=== PATIENT | male | born 1970 | race American Indian/Alaskan Native ===

== ENCOUNTER 2016-05-23 14:44 | Emergency (ER) | payer SELFPAY ==
[2016-05-23 16:00] LABS: Basophils % (Auto) 0.7 % (0.0-1.8); Eosinophils % (Auto) 3.5 % (0.0-4.3); Hematocrit 41.8 % (35.5-45.6); Hemoglobin 13.9 gm/dl (11.8-15.2); Mean Corpuscular HGB Conc 33 % (32-34); Mean Corpuscular Hemoglobin 27 pg (28-32); Mean Corpuscular Volume 81 fl (84-94); Platelet Count 367 K/mm3 (140-440); Red Blood Count 5.19 M/mm3 (3.65-5.03); Red Cell Distribution Width 15.4 % (13.2-15.2); White Blood Count 13.9 K/mm3 (4.5-11.0)
[2016-05-23 16:23] LABS: Anion Gap 20 mmol/L; BUN/Creatinine Ratio 9.09; Blood Urea Nitrogen 10 mg/dL (9-20); Calcium 9.4 mg/dL (8.4-10.2); Carbon Dioxide 26 mmol/L (22-30); Glucose 133 mg/dL (75-100); Potassium 3.8 mmol/L (3.6-5.0); Sodium 142 mmol/L (137-145)
[2016-05-24] MEDS ORDERED: NORCO 7.5/325 PO ONE (01:03)
--- NOTE | 2016-05-24 01:28 | Emergency Department Report ---
HPI - General Chief Complaint: Chest Pain Time Seen by Provider: 05/24/16 00:55 - HPI HPI: The patient is a 45-year-old male who presents for evaluation of chest pain. The patient reports 2 days of on and off midsternal chest pain, throbbing in quality, 10/10 in severity, exacerbated with movement of the upper chest wall or arms at the shoulder joint bilaterally. The patient denies trauma to the chest wall, fever, dyspnea, dyspnea, syncope, hemoptysis, unilateral leg swelling, recent immobilization, history of DVT or PE, recent cancer, history of congenital heart disease, or history of illicit drug use. ED Past Medical Hx - Past Medical History Hx Diabetes: Yes Additional medical history: Eye problem - Surgical History Additional Surgical History: Thyroid - Social History Smoking Status: Former Smoker Substance Use Type: None - Medications Home Medications: Home Medications Medication Instructions Recorded Confirmed Last Taken Type Cyclobenzaprine HCl [Flexeril 5 MG 5 mg PO Q8HR PRN #12 tab 05/24/16 Unknown Rx TAB] Levothyroxine [Synthroid] 100 mcg PO QAM 05/24/16 05/24/16 Unknown History Levothyroxine [Synthroid] 100 mcg PO QAM #30 tablet 05/24/16 Unknown Rx ED Review of Systems ROS: Stated complaint: CHEST PAIN Other details as noted in HPI Constitutional: denies: fever ENT: denies: throat or neck pain Respiratory: denies: cough, shortness of breath Cardiovascular: reports chest pain Endocrine: denies unexplained weight loss or gain Gastrointestinal: denies: abdominal pain, nausea Genitourinary: denies: dysuria Musculoskeletal: denies: leg swelling Skin: denies: rash Neurological: denies: headache Hematological/Lymphatic: denies: easy bleeding or easy bruising Psych: denies sadness or hopelessness Physical Exam - Physical Exam Vital Signs: Vital Signs 05/23/16 15:02 Temperature 98.4 F Pulse Rate 85 Respiratory 20 Rate Blood Pressure 179/105 O2 Sat by Pulse 95 Oximetry Physical Exam: General: well-nourished, well-developed, no acute distress Head: Normocephalic, atraumatic Eyes: normal sclera ENT: Mucous membranes are pink and moist Neck: trachea midline, neck supple, No neck stiffness, no cervical adenopathy Respiratory: Breath sounds equal bilaterally, no wheezing, rales, or rhonchi Cardio: S1 and S2 present, no murmurs, rubs, gallops, capillary refill is brisk Abdomen: Normoactive bowel sounds, soft abdomen, no rigidity, no guarding or rebound tenderness Musc: No pitting edema Skin: No rash Neuro: no facial drooping, normal speech Psych: Normal affect ED Course Vital Signs 05/23/16 15:02 Temperature 98.4 F Pulse Rate 85 Respiratory 20 Rate Blood Pressure 179/105 O2 Sat by Pulse 95 Oximetry ED Medical Decision Making - Lab Data Result diagrams: 05/23/16 15:44 05/23/16 15:44 - Medical Decision Making The patient was seen and examined by myself. The patient is placed on a telemetry monitor and continuous pulse ox. On initial evaluation, the patient was found to be in no distress. EKG was negative for findings suggestive of acute cardiac infarct. Labs and imaging are obtained. The patient is given a tablet of [place] for his pain. Chest x-ray is negative for pneumothorax, focal consolidation, pulmonary vascular congestion, pleural effusion, or other obvious acute cardiopulmonary disease process. Lab results were non-concerning including levels of 3 sets of troponin. The patient was reevaluated and reported that their symptoms were markedly improved. As the patient has a ANTHONY risk score less than 2, and a well's score less than 2, the patient is at low risk of ACS or pulmonary emboli etiology of their symptoms. The patient is stable for discharge with outpatient follow-up. The patient is given follow-up and return instructions. The patient expressed understanding and agreed with the plan. The patient is discharged in stable condition. Critical care attestation.: If time is entered above; I have spent that time in minutes in the direct care of this critically ill patient, excluding procedure time. ED Disposition Clinical Impression: Acute chest pain Disposition: DISCHARGED TO HOME OR SELFCARE Is pt being admited?: No Does the pt Need Aspirin: No Condition: Stable Instructions: Chest Pain (ED) Referrals: PRIMARY CARE, [Primary Care Provider] - 3-5 Days Time of Disposition: :09
[2016-05-24 03:28] VITALS: BP 148/87
--- NOTE | 2016-05-24 08:19 | XRay Report ---
AP CHEST : 05/24/16 CLINICAL: Chest pain. COMPARISON:None FINDINGS: Normal heart and pulmonary vessels. The lungs are normally expanded and clear. The bones and soft tissues are unremarkable. IMPRESSION: Normal chest.
== END 2016-05-24 01:45 | disposition home or self-care (01) ==
LOC: ED 14:44
DX: R07.9 Chest pain, unspecified (principal); E11.9 Type 2 diabetes mellitus without complications; R50.9 Fever, unspecified; Z86.718 Personal history of other venous thrombosis and embolism; Z87.891 Personal history of nicotine dependence
CPT/HCPCS: 36415; 71010; 80048; 84484; 85025; 93005; 93010